=== PATIENT | male | born 1945 | race Caucasian/White ===

== ENCOUNTER 2018-07-26 12:05 | Emergency (ER) | payer OTHER, MEDICARE ==
[2018-07-26] MEDS ORDERED: Adacel (T-DAP) 0.5 ML SYRINGE ONE (12:12)
[2018-07-26] MEDS ORDERED: Ketorolac Tromethamine 60 MG/2 ML VIAL ONE (12:12)
[2018-07-26] MEDS ORDERED: Bacitracin Zinc 1 Packet ONE ×2 (12:22→12:29)
== END 2018-07-26 12:36 | disposition home or self-care (01) ==
LOC: NAV ERS 12:05
DX: T22.00XA Burn of unspecified degree of shoulder and upper limb, except wrist and hand, unspecified site, initial encounter (principal); T20.06XA Burn of unspecified degree of forehead and cheek, initial encounter; E78.5 Hyperlipidemia, unspecified; Z79.82 Long term (current) use of aspirin; Z79.899 Other long term (current) drug therapy; X08.8XXA Exposure to other specified smoke, fire and flames, initial encounter
CPT/HCPCS: 16000; 90471; 90715; J1885